=== PATIENT | female | born 2000 | race Caucasian/White ===

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

== ENCOUNTER 2021-02-23 17:36 | Emergency (ER) | payer MEDICAID ==
[~2021-02-23] VITALS: Ht 170.2 cm; Wt 84.0 kg
[2021-02-23] MEDS ORDERED: IPRATROPIUM BROMIDE (0.02%) 0.5MG/2.5ML NEB HHN STA (18:17)
[2021-02-23] MEDS ORDERED: PREDNISONE 20MG TABLET PO STA (18:17)
[2021-02-23] MEDS ORDERED: ALBUTEROL (0.083%) 2.5MG/3ML NEB HHN STA (18:17)
[2021-02-23 19:23] LABS: BASOPHILS % 0.5 % (0.0-2.0); EOSINOPHILS % 1.8 % (0.0-5.0); HEMATOCRIT. 42.5 % (36.0-48.0); HEMOGLOBIN. 14.4 g/dL (12.0-16.0); LYMPHOCYTES % 28.6 % (20.0-50.0); MEAN CORPUSCULAR HEMOGLOBIN 29.2 pg (28.0-32.0); MEAN CORPUSCULAR VOLUME 85.8 fL (81.0-99.0); MEAN PLATELET VOLUME 8.8 fl (7.4-10.4); MONOCYTES % 4.7 % (2.0-8.0); NEUTROPHILS % 64.4 % (40.0-76.0); PLATELET 264 x1000/uL (130-400); RED BLOOD CELL COUNT 4.95 mill/uL (4.2-5.4); RED CELL DISTRIBUTION WIDTH 13.7 % (11.6-14.6)
[2021-02-23 19:30] LABS: CHLORIDE 110 mEq/L (98-107)
[2021-02-23] MEDS ORDERED: P50 MT (20:24)
[2021-02-23 21:01] VITALS: BP 126/85
== END 2021-02-23 21:02 | disposition home or self-care (01) ==
LOC: ER 17:36
DX: J45.901 Unspecified asthma with (acute) exacerbation (principal); F12.10 Cannabis abuse, uncomplicated; Z86.59 Personal history of other mental and behavioral disorders
CPT/HCPCS: 36415; 71045; 80053; 83880; 84484; 85025; 93005; 94640; 99285; J7512; Z7610

== ENCOUNTER 2022-08-09 15:01 | Emergency (ER) | payer MEDICAID ==
[~2022-08-09] VITALS: Ht 172.7 cm; Wt 80.0 kg
[~2022-08-09 15:01] MED LIST: P50 MT
[2022-08-09 18:00] LABS: CLARITY URINE CLOUDY (CLEAR); COLOR URINE ORANGE (YELLOW); KETONES URINE TRACE (NEGATIVE); LEUKOCYTE ESTERASE URINE 3+ (NEGATIVE); NITRITE URINE NEGATIVE (NEGATIVE); OCCULT BLOOD URINE TRACE (NEGATIVE); PROTEIN URINE TRACE (NEGATIVE); SPECIFIC GRAVITY URINE 1.026 (1.005-1.030)
[2022-08-09] MEDS ORDERED: IBUPROFEN 400MG TABLET PO ONE (18:00)
[2022-08-09] MEDS ORDERED: ACETAMINOPHEN 325MG TABLET PO ONE (18:00)
[2022-08-09 20:41] VITALS: BP 116/70
[2022-08-09] MEDS ORDERED: CIPR-263 MT (21:06)
== END 2022-08-09 21:42 | disposition home or self-care (01) ==
LOC: ER 15:22
DX: M54.50 Low back pain, unspecified (principal); R07.89 Other chest pain; R05.9 Cough, unspecified; D64.9 Anemia, unspecified; J45.909 Unspecified asthma, uncomplicated; F12.10 Cannabis abuse, uncomplicated; Z20.822 Contact with and (suspected) exposure to COVID-19
CPT/HCPCS: 71045; 81003; 81025; 87426; 87804; 93005; 99285; C9803